=== PATIENT | male | born 1950 | race Two or more races ===

== ENCOUNTER 2021-03-30 08:49 | Emergency (ER) | payer OTHER ==
[~2021-03-30] VITALS: Ht 167.6 cm; Wt 63.5 kg
[2021-03-30] MEDS ORDERED: PEPCID AC20 MG PO (09:14)
[2021-03-30] MEDS ORDERED: JARDIANCE10 MG PO (09:15)
[2021-03-30] MEDS ORDERED: LOSARTAN POTASS50 MG PO (09:15)
[2021-03-30] MEDS ORDERED: PLAVIX75 MG PO (09:15)
[2021-03-30] MEDS ORDERED: SYNTHROID75 MCG PO (09:15)
[2021-03-30] MEDS ORDERED: ADULT ASPIRIN81 MG PO (09:15)
[2021-03-30] MEDS ORDERED: TRAZODONE HCL100 MG PO (09:16)
[2021-03-30] MEDS ORDERED: SERTRALINE HCL100 MG PO (09:16)
[2021-03-30] MEDS ORDERED: QUETIAPINE FUM400 M1 PO (09:16)
[2021-03-30] MEDS ORDERED: ATORVASTATIN CA80 MG PO (09:16)
[2021-03-30] MEDS ORDERED: CLONAZEPAM0.5 MG PO (09:17)
== END 2021-03-30 12:13 | disposition home or self-care (01) ==
LOC: ER 08:49
DX: S01.02XA Laceration with foreign body of scalp, initial encounter (principal); W01.198A Fall on same level from slipping, tripping and stumbling with subsequent striking against other object, initial encounter; Y93.E1 Activity, personal bathing and showering; Y92.012 Bathroom of single-family (private) house as the place of occurrence of the external cause; Y99.8 Other external cause status